=== PATIENT | female | born 1990 | race Asian ===

== ENCOUNTER → 2016-09-23 | Outpatient (CLI) | payer OTHER ==
--- NOTE | ~2016-09-23 | MR17 ---
[facility] A Service of [facility] & [facility] RADIOLOGY TEXT RESULTS PATIENT: SAROJ ANDERS LOCATION: [facility] : [birth year] UNIT #: [id number] AGE: [address]: Felton Magdaleno MD SEX: F ORDER DR: [id number] [address] [address] [id number] O MR#: [id number] Acc #: [id number] NAME: SAROJ ANDERS : 1990 SEX: F STUDY DATE/TIME: 09/23/2016 10:50 UNIT: [facility] ROOM: STUDY DESCRIPTION: MR Brain WWo Contrast Attending Physician: Felton Magdaleno M.D. Referring Physician: Felton Magdaleno M.D. Ordering Physician: Felton Magdaleno M.D. Primary Care Physician: Jj Scott M.D. MRI CENTER REPORT This report is preliminary unless electronic signature is present. EXAM MRI of the brain with and without contrast dated 09/23/2016. COMPARISON STUDIES MRI of the brain with and without contrast dated 03/05/2016. HISTORY Continuous headaches, visual changes and loss for 5 years. FINDINGS Multisequence, multiplanar imaging of the brain was obtained with and without contrast. 20 mL of MultiHance was administered intravenously. There is a homogeneously enhancing extraaxial mass in the right frontoparietal region measuring 1.5 x 0.9 x 1.1 cm, relatively stable given the differences in slice selection. There is no mass effect on the adjacent brain parenchyma. No acute stroke, hydrocephalus, hemorrhage, or midline shift is seen. Vascular flow voids of the major cerebral arteries and dural venous sinuses are not occluded on these thicker slices. Nasal septum is deviated to the right. There is small nodular mucosal thickening in the posterior right ethmoid and left posterior maxillary sinus. Images orbits with the ocular structures are unremarkable. Mastoid air cells are well aerated. Thick slices through the sella with the pituitary gland, pineal region, and upper cervical spine are unremarkable. IMPRESSION 1. No significant interval change. 2. Redemonstrated is a 1.5 cm homogeneously enhancing stable extraaxial mass in the right frontoparietal region. It is most suggestive of a benign lesion, like meningioma. [facility]. [facility] A Service of [facility] RADIOLOGY TEXT RESULTS PATIENT: SAROJ ANDERS LOCATION: [facility] : [birth year] UNIT #: [id number] AGE: [address]: Felton Magdaleno MD SEX: F ORDER DR: Dictated by... Susan Song M.D. THIS IS AN ELECTRONICALLY VERIFIED REPORT Susan Song M.D. at 09/23/2016 5:23 PM CPR/tmw TD: 09/23/2016 15:52 JOB #: [id number] MRI CENTER REPORT Page 1 of 1
== END | disposition home or self-care (01) ==
LOC: SMRI 10:38
DX: D32.9 Benign neoplasm of meninges, unspecified (principal)
CPT/HCPCS: 70553; A9581